=== PATIENT | male | born 1940 | race Caucasian/White ===

== ENCOUNTER 2021-09-24 18:16 | Emergency (ER) | payer MEDICARE, OTHER ==
[~2021-09-24] VITALS: Ht 167 cm; Wt 74.0 kg
[2021-09-24 18:16] VITALS: BP 122/65
[2021-09-24 18:38] LABS: HEMATOCRIT 42 % (40-54); HEMOGLOBIN 14.3 g/dL (13.3-17.7); MEAN CORPUSCULAR HEMOGLOBIN 32 pg (25-34); MEAN CORPUSCULAR VOLUME 96 fL (80-99); WHITE BLOOD COUNT 9.4 10^3/uL (4.3-11.0)
[2021-09-24 18:39] LABS: BASOPHILS % (AUTO) 0 % (0-10); EOSINOPHILS # (AUTO) 0.2 10^3/uL (0.0-0.3); EOSINOPHILS % (AUTO) 2 % (0-10); LYMPHOCYTES # (AUTO) 2.4 X 10^3 (1.0-4.0); LYMPHOCYTES % (AUTO) 26 % (12-44); MEAN CORPUSCULAR HGB CONC 34 g/dL (32-36); MEAN PLATELET VOLUME 9.1 fL (9.0-12.2); MONOCYTES # (AUTO) 0.9 X 10^3 (0.0-1.0); MONOCYTES % (AUTO) 10 % (0-12); NEUTROPHILS # (AUTO) 5.8 X 10^3 (1.8-7.8); NEUTROPHILS % (AUTO) 62 % (42-75); PLATELET COUNT 245 10^3/uL (130-400)
[2021-09-24 18:40] LABS: PROTHROMBIN TIME PATIENT 13.2 SEC (12.2-14.7)
[2021-09-24 18:42] LABS: MAGNESIUM 1.9 MG/DL (1.6-2.4)
--- NOTE | 2021-09-24 18:42 | ED General ---
General Chief Complaint: Dizziness/Syncope Stated Complaint: SYNCOPAL EPISODE Nursing Triage Note: PT WAS EATING AT [facility] AND HE TOLD HIS HE STARTED HAVING BACK AND NECK PAIN WHILE SITTING THERE. SHE STATES HE THEN SMULPED OVER AND VOMITED BUT WOKE UP BRIEFLY LATER AND WAS ALERTAND ORIENTED. Source of Information: Patient, EMS History of Present Illness Date Seen by Provider: Sep 24, 2021 Time Seen by Provider: 18:20 Initial Comments 80-year-old male presenting with EMS from [facility] [employer] [facility]. He was sitting down to dinner with his when he had some neck pain and then had a syncopal episode and emesis. He quickly woke up and was alert and oriented. He states he feels like he is back to his baseline now. He denies having any chest pain or neck pain. He is not having a headache, fever, chills, cough, abd ominal pain, nausea. He does have a cardiac history with stents placed in the early . He follows with Dr. Paredes and Leonarda Bishop. His primary care provider is Dr. Miles. He states that he was feeling fine up until right before passing out and then he had the neck pain. He denies having an episode like this in the past. Associated Systoms: No Chest Pain, No Cough, No Diaphoresis, No Fever/Chills, No Headaches, No Loss of Appetite, No Malaise; Nausea/Vomiting (1 episode of emesis with syncopal episode); No Rash, No Seizure, No Shortness of Air; Syncope; No Weakness Allergies and Home Medications Allergies Coded Allergies: No Known Drug Allergies (Unverified , 09/24/21) Patient Home Medication List Home Medication List Reviewed: Yes Review of Systems Review of Systems Constitutional: No chills, No diaphoresis, No dizziness, No fever, No malaise EENTM: No vision loss, No epistaxis, No nose congestion Respiratory: No cough, No short of breath Cardiovascular: No chest pain, No edema, No palpitations Gastrointestinal: see HPI Genitourinary: No dysuria Musculoskeletal: neck pain (just prior to syncope) Skin: No rash Psychiatric/Neurological: Denies Headache, Denies Numbness, Denies Paresthesia, Denies Seizure, Denies Tingling, Denies Tremors, Denies Weakness Hematologic/Lymphatic: Denies Blood Clots Past Spsxytj-[id number]-Rmmoyi Hx Patient Social History Tobacco Use?: No Use of E-Cig and/or Vaping dev: No Substance use?: No Alcohol Use?: No Pt feels they are or have been: No Immunizations Up To Date Influenza Vaccine Up-to-Date: Yes; Up-to-Date Past Medical History Surgery/Hospitalization HX: CAD with stent Surgeries: Yes Coronary Stent Respiratory: No Cardiac: Yes Coronary Artery Disease, Heart Attack, High Cholesterol, Hypertension, Syncope (Sep 2021) Neurological: No Genitourinary: No Physical Exam Vital Signs Vital Signs - First Documented 09/24/21 18:16 Temp 36.2 Pulse 88 Resp 20 B/P (MAP) 122/65 (84) Pulse Ox 96 O2 Delivery Room Air Capillary Refill : Less Than 3 Seconds Height, Weight, BMI Height: '" Weight: lbs. oz. kg; 26.00 BMI Method: General Appearance: No Apparent Distress, WD/WN HEENT: PERRL/EOMI, Pharynx Normal Neck: Full Range of Motion, Normal Inspection, Non Tender, Supple Respiratory: Chest Non Tender, Lungs Clear, Normal Breath Sounds Cardiovascular: Regular Rate, Rhythm, Normal Peripheral Pulses Gastrointestinal: Normal Bowel Sounds, No Pulsatile Mass, Non Tender, Soft Rectal: Deferred Extremity: Normal Capillary Refill, Normal Inspection, No Pedal Edema Neurologic/Psychiatric: Alert, Oriented x3 Skin: Normal Color, Warm/Dry Progress/Results/Core Measures Suspected Sepsis SIRS Temperature: Pulse: 88 Respiratory Rate: 20 Laboratory Tests 09/24/21 18:20: White Blood Count 9.4 Blood Pressure 122 /65 Mean: 84 Laboratory Tests 09/24/21 18:20: Creatinine 1.20, INR Comment 1.0, Platelet Count 245, Total Bilirubin 0.7 Results/Orders Lab Results Laboratory Tests Test 09/24/21 18:20 09/24/21 19:50 09/24/21 20:10 Range/Units White Blood Count 9.4 4.3-11.0 10^3/uL Red Blood Count 4.42 4.30-5.52 10^6/uL Hemoglobin 14.3 13.3-17.7 g/dL Hematocrit 42 40-54 % Mean Corpuscular Volume 96 80-99 fL Mean Corpuscular Hemoglobin 32 25-34 pg Mean Corpuscular Hemoglobin Concent 34 32-36 g/dL Red Cell Distribution Width 13.0 10.0-14.5 % Platelet Count 245 130-400 10^3/uL Mean Platelet Volume 9.1 9.0-12.2 fL Immature Granulocyte % (Auto) 1 % Neutrophils (%) (Auto) 62 42-75 % Lymphocytes (%) (Auto) 26 12-44 % Monocytes (%) (Auto) 10 0-12 % Eosinophils (%) (Auto) 2 0-10 % Basophils (%) (Auto) 0 0-10 % Neutrophils # (Auto) 5.8 1.8-7.8 X 10^3 Lymphocytes # (Auto) 2.4 1.0-4.0 X 10^3 Monocytes # (Auto) 0.9 0.0-1.0 X 10^3 Eosinophils # (Auto) 0.2 0.0-0.3 10^3/uL Basophils # (Auto) 0.0 0.0-0.1 10^3/uL Immature Granulocyte # (Auto) 0.1 0.0-0.1 10^3/uL Prothrombin Time 13.2 12.2-14.7 SEC INR Comment 1.0 0.8-1.4 Activated Partial Thromboplast Time 22 L 24-35 SEC Sodium Level 139 135-145 MMOL/L Potassium Level 4.4 3.6-5.0 MMOL/L Chloride Level 106 98-107 MMOL/L Carbon Dioxide Level 20 L 21-32 MMOL/L Anion Gap 13 5-14 MMOL/L Blood Urea Nitrogen 19 H 7-18 MG/DL Creatinine 1.20 0.60-1.30 MG/DL Estimat Glomerular Filtration Rate 62 BUN/Creatinine Ratio 16 Glucose Level 135 H 70-105 MG/DL Calcium Level 9.0 8.5-10.1 MG/DL Corrected Calcium 9.2 8.5-10.1 MG/DL Magnesium Level 1.9 1.6-2.4 MG/DL Total Bilirubin 0.7 0.1-1.0 MG/DL Aspartate Amino Transf (AST/SGOT) 24 5-34 U/L Alanine Aminotransferase (ALT/SGPT) 16 0-55 U/L Alkaline Phosphatase 86 40-136 U/L Troponin I < 0.30 < 0.30 <0.30 NG/ML C-Reactive Protein < 0.30 <0.50 MG/DL Pro-B-Type Natriuretic Peptide 96.4 H <75.0 PG/ML Total Protein 7.2 6.4-8.2 GM/DL Albumin 3.8 3.2-4.5 GM/DL Serum Alcohol < 10 <10 MG/DL Urine Color YELLOW Urine Clarity CLEAR Urine pH 6.5 5-9 Urine Specific [place] 1.015 L 1.016-1.022 Urine Protein NEGATIVE NEGATIVE Urine Glucose (UA) NEGATIVE NEGATIVE Urine Ketones TRACE H NEGATIVE Urine Nitrite NEGATIVE NEGATIVE Urine Bilirubin NEGATIVE NEGATIVE Urine Urobilinogen 0.2 < = 1.0 MG/DL Urine Leukocyte Esterase NEGATIVE NEGATIVE Urine RBC (Auto) NEGATIVE NEGATIVE Urine RBC 2-5 H /HPF Urine WBC NONE /HPF Urine Squamous Epithelial Cells NONE /HPF Urine Crystals NONE /LPF Urine Bacteria TRACE /HPF Urine Casts PRESENT /LPF Urine Hyaline Casts 2-5 H /LPF Urine Granular Casts 0-2 H /LPF Urine Mucus LARGE H /LPF Urine Culture Indicated NO My Orders Orders - RADHA AGUAYO MD Monitor-Rhythm Ecg Trace Only (09/24/21 18:34) Ed Iv/Invasive Line Start (09/24/21 18:34) Cbc With Automated Diff (09/24/21 18:34) Comprehensive Metabolic Panel (09/24/21 18:34) Crp Fs (09/24/21 18:34) Troponin I Fs (09/24/21 18:34) Protime With Inr (09/24/21 18:34) Partial Thromboplastin Time (09/24/21 18:34) Ekg Tracing (09/24/21 18:34) Probnp Fs (09/24/21 18:34) Chest 1 View Ap/Pa Only (09/24/21 18:34) Ua Culture If Indicated (09/24/21 18:34) Alcohol (09/24/21 18:34) Magnesium (09/24/21 18:34) Ns Iv 1000 Ml (Sodium Chloride 0.9%) (09/24/21 18:52) Troponin I Fs (09/24/21 20:04) Vital Signs/I&O 09/24/21 09/24/21 09/24/21 09/24/21 18:16 19:00 20:00 21:15 Temp 36.2 Pulse 88 86 82 88 Resp 20 21 21 19 B/P (MAP) 122/65 (84) 122/70 143/66 131/79 Pulse Ox 96 97 98 97 O2 Delivery Room Air Room Air Room Air Room Air Capillary Refill : Less Than 3 Seconds Blood Pressure Mean: 84 Progress Note #1: Progress Note Check ECG, CXR, labs to see if anything shows to explain 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 Give IVF for hydration while waiting on testing. Cardiac telemetry monitoring to watch for arrythmia Progress Note #2: Time: 18:54 Progress Note Labs are all stable without acute significant abnormality. ECG without ST elevation or ischemia. CXR clear of infiltrate or effusion. Will continue to monitor, administer 1 L NS IVF for hydation and recheck cardiac enzymes at 2 hours. Progress Note #3: Progress Note Urine showed some trace ketones but no sign of infection. He may have been a little dehydrated and had a vasovagal or orthostatic syncope. His repeat Troponin is still negative. I tried to call Dr. Miles about the patient but was unable to reach him. Pt still felt fine and had no complaints and was anxious to go home. Counseled to follow-up with Dr. Miles on Monday and return sooner if more problems ECG Initial ECG Impression Date: Sep 24, 2021 Initial ECG Impression Time: 18:16 Initial ECG Rate: 72 Initial ECG Rhythm: Normal Sinus Initial ECG Comparisson: No Previous ECG Available Comment Normal sinus rhythm with a heart rate of [address] elevation. He does have some PVCs. His TN interval is 160 ms. QT interval 374 ms with a QTc interval of 410 ms. There is no prior tracing available for comparison. Diagnostic Imaging Diagonstic Imaging: Xray Plain Films/CT/US/NM/MRI: chest Comments [facility] [place], [place] NAME: JORGE JAVIER [facility] REC#: [id number] PT STATUS: REG ER : 1940 PHYSICIAN: RADHA AGUAYO MD ADMIT DATE: 09/24/21/ER FS Draft Date of Exam:09/24/21 CHEST 1 VIEW AP/PA ONLY INDICATION: Syncope. COMPARISON: None. FINDINGS: The lungs are clear. The heart size and vasculature are normal. No failure, effusion or pneumothorax. IMPRESSION: Normal frontal chest. Dictated on workstation # [id number] Dict: 09/24/21 1849 Trans: 09/24/21 1850 [facility] [id number] Interpreted by: MIKI SMALL Electronically signed by: Reviewed: Reviewed by Me Departure Impression Primary Impression: Episode of syncope Qualified Codes: R55 - Syncope and collapse Disposition: HOME, SELF-CARE Condition: Stable Departure-Patient Inst. Decision time for Depature: 21:29 Referrals: YAO MILES MD (PCP/Family) Primary Care Physician Patient Instructions: Fainting, Adult ED Add. Discharge Instructions: Your tests have looked stable and no sign of heart attack here tonight. It did look like you might have been a little dehydrated and a low blood pressure may have contributed to your syncope (Fainting) episode with vomiting. If you have more problems or symptoms over the weekend then return or seek medical care, otherwise call and follow up with Dr. Miles Monday and this next week. All discharge instructions reviewed with patient and/or family. Voiced understanding. RADHA AGUAYO MD Sep 24, 2021 18:42
[2021-09-24 18:48] LABS: ALANINE AMINOTRANSFERASE 16 U/L (0-55); ALBUMIN 3.8 GM/DL (3.2-4.5); ALKALINE PHOSPHATASE 86 U/L (40-136); BILIRUBIN,TOTAL 0.7 MG/DL (0.1-1.0); BUN/CREATININE RATIO 16; CARBON DIOXIDE 20 MMOL/L (21-32); CHLORIDE 106 MMOL/L (98-107); GFR ESTIMATED 62; GLUCOSE 135 MG/DL (70-105); POTASSIUM 4.4 MMOL/L (3.6-5.0); SODIUM 139 MMOL/L (135-145); TOTAL PROTEIN 7.2 GM/DL (6.4-8.2)
--- NOTE | 2021-09-24 18:51 | Diagnostic Imaging Report ---
INDICATION: Syncope. COMPARISON: None. FINDINGS: The lungs are clear. The heart size and vasculature are normal. No failure, effusion or pneumothorax. IMPRESSION: Normal frontal chest. Dictated by: Dictated on workstation # [id number]
[2021-09-24] MEDS ORDERED: NS IV 1000 ML 1,000 ML IV STA (18:52)
[2021-09-24 19:59] LABS: BILIRUBIN,URINE NEGATIVE (NEGATIVE); CLARITY,URINE CLEAR; COLOR,URINE YELLOW; GLUCOSE, URINE (UA) NEGATIVE (NEGATIVE); KETONES,URINE TRACE (NEGATIVE); NITRITE,URINE NEGATIVE (NEGATIVE); PH,URINE 6.5 (5-9); PROTEIN,URINE NEGATIVE (NEGATIVE)
[2021-09-24 20:00] LABS: BACTERIA,URINE TRACE /HPF; GRANULAR CASTS,URINE 0-2 /LPF; LEUKOCYTE ESTERASE ,URINE NEGATIVE (NEGATIVE)
== END 2021-09-24 21:35 | disposition home or self-care (01) ==
LOC: ER FS 18:18
DX: R55 Syncope and collapse (principal); I10 Essential (primary) hypertension; I25.2 Old myocardial infarction
CPT/HCPCS: 36415; 71045; 80053; 81000; 83735; 83880; 84484; 85025; 85610; 85730; 86141; 93005; 93041; 99284; G0480; 80320